=== PATIENT | female | born 1990 ===

== ENCOUNTER 2025-08-27 19:01 | Emergency (ER) | payer OTHER, SELFPAY ==
--- NOTE | 2025-08-27 19:22 | DI.US.S_ITS ---
PROCEDURE: US PELVIC COMPLETE INDICATIONS: possible imbedded IUD TECHNIQUE: Real-time scanning was performed of the pelvic organs, with image documentation. Additional endovaginal scanning was necessary due to incomplete visualization of the adnexal and endometrial structures by transabdominal scanning. COMPARISON: None. FINDINGS: Uterus: Uterus is anteverted and normal in size at 8.3 x 3.9 x 5.5 cm. The myometrium is homogeneous. The endometrium measures 3.2 mm combined thickness. Intrauterine device appears in appropriate position. Ovaries: The right ovary measures 3.8 x 4.4 x 1.7 cm, with a calculated ovarian volume of 14.4 cc. The left ovary measures 3.0 x 3.2 x 2.1 cm, with a calculated ovarian volume of 10.5 cc. Complex right ovarian cyst measuring 1.7 x 1.1 x 1.5 cm. Simple left ovarian cyst measuring 1.6 x 1.3 x 2.3 cm. Less than 12 follicles can be seen in each ovary. No adnexal masses are seen. Other: No pathologic free abdominal or pelvic fluid. IMPRESSION: Intrauterine device appears in appropriate position. Complex right ovarian cyst measuring 1.7 cm, may represent a hemorrhagic cyst versus endometrioma. Recommend follow-up ultrasound in 6-12 weeks to assess for resolution. We strive to produce accurate, complete, and clear reports of imaging services. To assist us in improving patient care, this report was composed using standard report templates and voice recognition software. Therefore, it may contain abnormal punctuation, insertions and/or omissions. Occasional wrong-word or sound-alike substitutions may occur. Though we review the report and make efforts to correct it, we do recommend that the report be read carefully in proper context to recognize any text inaccuracies. Dictated by: Thompson Trevino M.D. on 08/27/2025 at 20:03 Approved by: Thompson Trevino M.D. on 08/27/2025 at 20:05
--- NOTE | 2025-08-27 19:28 | PC.NURSE ---
called for triage, not in lobby
[2025-08-27 19:34] VITALS: BP 142/91; PULSE 111; RESP 18; TEMP 37.2; O2SAT 99; BMI 23.5
--- NOTE | 2025-08-27 19:47 | PC.NURSE ---
Pt found walking back into ER. Pt taken to US after triage completed.
--- NOTE | 2025-08-27 20:43 | ED_ITS ---
HPI - General Adult General Chief complaint: Urogenital-Female Stated complaint: Thinks IUD is embedded Time Seen by Provider: 08/27/25 19:05 Source: patient Mode of arrival: Ambulatory History of Present Illness HPI narrative: 34-year-old woman who presents with pelvic pain and cramping for the last week and is concerned that her IUD is poorly positioned and causing symptoms. Because of her IUD she has not been having periods. She saw a primary physician about a week ago with Pap smear and blood work done. There was a discussion of sexually transmitted infections with blood work done. She has not yet had any results back. She thinks that there was testing for STIs but she is not completely sure. She notes she had a recent episode of unprotected intercourse and would like to be empirically treated for both gonorrhea and chlamydia. She also would like her IUD out. Currently she has asked to other physicians to take it out and they declined. She understands that she will not have protection once removed but is very clear that she would like it out. Related Data Previous Rx's ?Medication ?Instructions ?Recorded doxycycline hyclate 100 mg capsule 100 mg PO BID #14 c aps 08/27/25 Allergies Allergy/AdvReac Type Severity Reaction Status Date / Time No Known Allergies Allergy Verified 08/27/25 19:39 Review of Systems Review of Systems Narrative: Pertinent positive and negative findings as per HPI Patient History Social History Smoking Status: Current every day smoker Smoking Status: Current every day smoker tobacco type: cigarettes Exam Initial Vital Signs Initial Vital Signs: Vital Signs Temperature 99.0 F 08/27/25 19:34 Pulse Rate 111 H 08/27/25 19:34 Respiratory Rate 18 08/27/25 19:34 Blood Pressure 142/91 H 08/27/25 19:34 Pulse Oximetry 99 08/27/25 19:34 Oxygen Delivery Method Room Air 08/27/25 19:34 General: Alert appropriate in no acute distress Respiratory: Able to speak in full sentences, no obvious respiratory distress Skin: No obvious rashes, warm and dry Neurologic: Grossly intact no obvious asymmetries or abnormalities Psych: appropriate insight and affect, cooperative : Healthy appearing external genitalia, no vaginal discharge, irregular odor, mucosal lesions. IUD strings are noted at the cervical os and are grasped with ring forceps and the IUD is easily removed. Course Orders Ordered: ED Orders 08/27/25 19:22 US pelvic complete Stat 08/27/25 22:21 Chlamydia Gonorrhea PCR -URINE Stat Discontinued Medications Ceftriaxone Sodium (Ceftriaxone 1,000 Mg Vial) 500 mg IM NOW ONE Stop: 08/27/25 22:22 Last Admin: 08/27/25 22:53 Dose: 500 mg Doxycycline Hyclate (Doxycycline Hyclate 100 Mg Tablet) 100 mg PO NOW ONE Stop: 08/27/25 22:22 Last Admin: 08/27/25 22:53 Dose: 100 mg Lidocaine HCl (Lidocaine 1% (Pf) 5 Ml) 2.1 ml INJ NOW ONE Stop: 08/27/25 22:22 Last Admin: 08/27/25 22:53 Dose: 2.1 ml Vital Signs Vital signs: Vital Signs - 8 hr 08/27/25 19:34 08/27/25 20:54 Temperature 99.0 F 98.5 F Pulse Rate 111 H 87 Respiratory Rate 18 16 Blood Pressure 142/91 H 121/66 Pulse Oximetry 99 97 Oxygen Delivery Method Room Air Room Air Medical Decision Making Lab Data Labs: Urine Dip Bedside Urine Glucose Negative Bedside Urine Bilirubin - Negative Bedside Urine Ketone - Negative Urine Specific [place] 1.010 Bedside Urine Occult Blood - Negative Bedside Urine pH 8.5 Bedside Urine Protein - Negative Bedside Urine Urobilinogen - Negative Bedside Urine Nitrite - Negative Bedside Urine Leukocytes - Negative Esterase Point of care testing: Urine Dip Bedside Urine Glucose Negative Bedside Urine Bilirubin - Negative Bedside Urine Ketone - Negative Urine Specific [place] 1.010 Bedside Urine Occult Blood - Negative Bedside Urine pH 8.5 Bedside Urine Protein - Negative Bedside Urine Urobilinogen - Negative Bedside Urine Nitrite - Negative Bedside Urine Leukocytes - Negative Esterase Imaging Data Pelvic ultrasound: Radiologist's Impression: PROCEDURE: US PELVIC COMPLETE INDICATIONS: possible imbedded IUD TECHNIQUE: Real-time scanning was performed of the pelvic organs, with image documentation. Additional endovaginal scanning was necessary due to incomplete visualization of the adnexal and endometrial structures by transabdominal scanning. COMPARISON: None. FINDINGS: Uterus: Uterus is anteverted and normal in size at 8.3 x 3.9 x 5.5 cm. The myometrium is homogeneous. The endometrium measures 3.2 mm combined thickness. Intrauterine device appears in appropriate position. Ovaries: The right ovary measures 3.8 x 4.4 x 1.7 cm, with a calculated ovarian volume of 14.4 cc. The left ovary measures 3.0 x 3.2 x 2.1 cm, with a calculated ovarian volume of 10.5 cc. Complex right ovarian cyst measuring 1.7 x 1.1 x 1.5 cm. Simple left ovarian cyst measuring 1.6 x 1.3 x 2.3 cm. Less than 12 follicles can be seen in each ovary. No adnexal masses are seen. Other: No pathologic free abdominal or pelvic fluid. IMPRESSION: Intrauterine device appears in appropriate position. Complex right ovarian cyst measuring 1.7 cm, may represent a hemorrhagic cyst versus endometrioma. Recommend follow-up ultrasound in 6-12 weeks to assess for resolution. We strive to produce accurate, complete, and clear reports of imaging services. To assist us in improving patient care, this report was composed using standard report templates and voice recognition software. Therefore, it may contain abnormal punctuation, insertions and/or omissions. Occasional wrong-word or sound-alike substitutions may occur. Though we review the report and make efforts to correct it, we do recommend that the report be read carefully in proper context to recognize any text inaccuracies. Dictated by: Thompson Trevino M.D. on 08/27/2025 at 20:03 MDM Narrative Medical decision making narrative: CC: Pelvic cramping Complicating co-morbidities: IUD that she is wanted to have removed, concern for sexually transmitted infection, possible urinary tract infection Data collected from: patient Differential considered: Displaced IUD, cramping secondary to IUD, PID, urinary tract infection, sexually transmitted infection Exam documented above, pertinent findings include: Exam is relatively benign. She does not have significant cervical motion tenderness. No significant vaginal discharge Lab Test results independently reviewed as above. Pertinent findings: Point of care urine does not suggest bladder infection Gonorrhea and chlamydia urine test PCR are pending Imaging studies independently reviewed: Ultrasound shows appropriately placed IUD with no other concern Procedure/ Treatments: at patient request IUD is removed. Patient is placed in a dorsal lithotomy position, speculum was gently inserted, cervical os is visualized with IUD strings notable. Ring forceps were used and IUD strings are pulled with IUD removal. There were no complications and patient tolerated procedure well With shared decision-making we opted to empirically treat her for both gonorrhea and chlamydia Re-evaluations: Patient is feeling significantly improved in pelvic cramping is almost resolved Discussion: 34-year-old woman empirically treated for gonorrhea and chlamydia with 500 mg of IM ceftriaxone and 7 days of doxycycline. At her request IUD is removed. Preceding ultrasound had demonstrated appropriate placement. We did review the fact that she will not be protected from . She will follow up with her primary care physician. I do not suspect pelvic inflammatory disease at this time. Questions are answered there was no indication for further imaging or hospitalization and she is safely discharge Discharge Plan Departure Patient Disposition: Home Clinical Impression: Urinary tract infection Qualifiers: Urinary tract infection type: acute cystitis Hematuria presence: without hematuria Qualified Code(s): N30.00 - Acute cystitis without hematuria Pain due to intrauterine contraceptive device (IUD) Qualifiers: Encounter type: initial encounter Qualified Code(s): T83.84XA - Pain due to genitourinary prosthetic devices, implants and grafts, initial encounter Instructions: DI for Urinary Tract Infection (UTI) Activity Restrictions/Additional Instructions: Thank you for coming into Ultrasound was done and showed that your IUD was appropriately positioned. I very much understand that you still feels that it is causing you pain. It was easily removed in the emergency department. You no longer have any protection against . Your urine did not suggest bladder infection of but it did look somewhat cloudy. I did tested for gonorrhea and chlamydia and if those returned positive you will get a phone call. I also treated you for both of those. The shot was for the gonorrhea and the 7 days of doxycycline is for the chlamydia. I would strongly recommend condoms with all future sexual encounters both for sexually transmitted infection prevention and protection but also to make sure you do not have an unintended If you find that you are getting worse or develop any new symptoms, please feel free to return to the emergency department for further evaluation. Prescriptions: New doxycycline hyclate 100 mg capsule 100 mg PO BID Qty: 14 0RF Referrals: Nico Genao ARNP [Primary Care Provider, Naturopathy] Stand Alone Forms: Patient Portal/API
[2025-08-27 20:54] VITALS: BP 121/66; PULSE 87; RESP 16; TEMP 36.9; O2SAT 97
[2025-08-27] MEDS: LIDOCAINE 1% (PF) 5 ML 2.1 ML INJ (22:53)
[2025-08-27] MEDS: DOXYCYCLINE HYCLATE 100 MG TABLET PO (22:53)
[2025-08-28 01:07] LABS: Urine N gonorrhoeae NOT DETECTED
[2025-08-28 01:23] LABS: Urine Chlamydia NOT DETECTED
== END 2025-08-27 23:49 | disposition home or self-care (01) ==
PROVIDERS: Emergency Provider Emergency Medicine; PCP Registered Nurse
DX: N30.00 Acute cystitis without hematuria (principal); T83.84XA Pain due to genitourinary prosthetic devices, implants and grafts, initial encounter
CPT/HCPCS: 76830; 76856; 81003; 87491; 87591; 96372; 99283; J0696

== ENCOUNTER 2025-09-02 20:37 | Emergency (ER) | payer OTHER, SELFPAY ==
[2025-09-02 20:44] VITALS: BP 111/65; PULSE 90; RESP 16; TEMP 36.6; O2SAT 98; BMI 23.3
[2025-09-02 22:42] LABS: Add Manual Diff / Slide Review NO; Hematocrit 37.3 % (36-46); Hemoglobin 12.6 g/dL (12.0-16.0); Lymphocytes Absolute Auto 1800 /uL (1100-4500); Mean Corpuscular HGB Conc 33.8 % (30-36); Mean Corpuscular Hemoglobin 31.4 PG (26-34); Mean Corpuscular Volume 93.0 fL (80-100); Platelet Count 276 X10^3/uL (150-400)
[2025-09-02 22:43] LABS: Appearance Urine UA CLEAR; Bilirubin Urine UA NEGATIVE (NEGATIVE); Color Urine UA YELLOW; Glucose Urine UA NEGATIVE (Negative); Ketones Urine UA NEGATIVE (NEGATIVE); Leukocyte Esterase Urine UA 1+ (NEGATIVE); Nitrite Urine UA NEGATIVE (Negative); Occult Blood Urine UA NEGATIVE (Negative); Protein Urine UA NEGATIVE (Negative); Specific Gravity Urine UA 1.025 (1.000-1.035); Urobilinogen Urine UA 1.0 E.U./dL (0.2)
[2025-09-02 22:50] LABS: UR Morphine/Opiate cutoff 300 Negative (Negative); Ur Specific Gravity Normal (Normal); Urine MDMA Negative (Negative); Urine Methamphetamines Negative (Negative); Urine Tetrahydrocannabinol Negative (Negative); Urine Tricyclic Antidepressant Negative (Negative)
[2025-09-02 22:53] LABS: Acetaminophen < 10 ug/mL (10-30); Alanine Aminotransferase 17 IU/L (<35); Albumin 3.8 g/dL (3.5-5.0); Albumin Globulin Ratio 1.3 (1.0-2.8); Alkaline Phosphatase 40 U/L (38-126); Blood Urea Nitrogen 11 mg/dL (7-17); Calcium 8.2 mg/dL (8.4-10.2); Carbon Dioxide 23 mmol/L (22-32); Chloride 107 mmol/L (98-107); Estimated Glomerular Filt Rate > 60 mL/min (>60); Ethanol (ETOH) < 10 mg/dL (<10); Globulin 2.9 g/dL (1.7-4.1); Glucose 121 mg/dL (70-99); HEMOLYSIS 32 (0-50); Potassium 3.8 mmol/L (3.4-5.1); Salicylate < 1.0 mg/dL (<20); Sodium 136 mmol/L (137-145); Total Protein 6.7 g/dL (6.3-8.2)
[2025-09-02 22:53] LABS: pH Urine UA 6.0 (4.5-8.0)
[2025-09-02 22:56] LABS: Culture Indicated Urine Cult Not Indicated
--- NOTE | 2025-09-02 23:03 | PC.NURSE ---
Patient c/o headache for years and states ordered MRI 2 weeks ago that she has not been able to scehdule, pt requesting pain medication and MRI. aware
[2025-09-02 23:16] LABS: Lithium < 0.2 mmol/L (0.6-1.2)
[2025-09-02] MEDS: IBUPROFEN 400 MG TABLET 800 MG PO (23:17)
[2025-09-02] MEDS: ACETAMINOPHEN 325 MG TABLET 975 MG PO (23:18)
[2025-09-02 23:41] LABS: TSH w/ Reflex to FT4 1.22 uIU/mL (0.47-4.68)
[2025-09-03 00:27] LABS: COVID19 -Nasal RAPID Negative (Negative)
--- NOTE | 2025-09-03 02:10 | ED.MEDCLEAR ---
HPI - Medical Clearance General Chief complaint: Medical Clearance Stated complaint: detox Time Seen by Provider: 09/02/25 22:18 Source: patient Mode of arrival: Ambulatory History of Present Illness HPI Narrative: 34-year-old female reports history of bipolar disorder, previously on lithium prescribed about 1 year ago, had stopped the lithium about 1 month ago, here for some kind of ?detox? evaluation but does not endorse use of any substance from which she is detoxing. Denies alcohol use, opiate use, benzodiazepine use. No shakiness or seizure activity. No abdominal pain or cramping or diarrhea. Denies thoughts of hurting herself or others. Does not feel out of control with her bipolar disorder. Related Information Previous Rx's ?Medication ?Instructions ?Recorded doxycycline hyclate 100 mg capsule 100 mg PO BID #14 caps 08/27/25 Allergies Allergy/AdvReac Type Severity Reaction Status Date / Time No Known Allergies Allergy Verified 09/02/25 20:45 Patient History tobacco type: cigarettes Exam Narrative Exam Narrative: GENERAL: Well-developed patient, in mild distress. HEAD: Atraumatic. Normocephalic. EYES: Pupils equal round and reactive. Extraocular motions intact. No scleral icterus. No injection or drainage. ENT: Nose without bleeding, purulent drainage. Throat without erythema, tonsillar hypertrophy or exudate. Airway patent. NECK: Trachea midline. Non tender CARDIOVASCULAR: Regular rate and rhythm without murmurs, gallops, or rubs. RESPIRATORY: Clear to auscultation. Breath sounds equal bilaterally. No wheezes, rales, or rhonchi. GASTROINTESTINAL: Abdomen soft, non-tender, nondistended. EXTREMITIES: No edema or joint tenderness. BACK: Nontender without deformity or crepitance. No flank tenderness. NEURO: AOx3. Motor functions grossly nonfocal. Psych: Denies thoughts of hurting self or others, no obvious flight of ideas, cooperative SKIN: No rash or erythema of visible areas Initial Vital Signs Initial Vital Signs: Vital Signs Temperature 98 F 09/02/25 20:44 Pulse Rate 90 09/02/25 20:44 Respiratory Rate 16 09/02/25 20:44 Blood Pressure 111/65 09/02/25 20:44 Pulse Oximetry 98 09/02/25 20:44 Oxygen Delivery Method Room Air 09/02/25 20:44 MDM - Medical Clearance Lab Data Attestation: I reviewed the patient's lab results. Lab results narrative: White blood cell count 7700, hemoglobin 12.6, platelets adequate. Glucose 121. Normal renal function, serum CO2, potassium. Sodium 136 slight low. Liver functions normal. Urine test negative. Urine dip negative. TSH normal. [place] not measurable. Salicylate and acetaminophen levels negative. COVID negative. 09/02/25 22:30 09/02/25 22:30 Labs: Lab Results 09/02/25 09/02/25 09/02/25 Range/Units 22:24 22:24 22:30 WBC 7.7 (4.5-11.0) X10^3/uL RBC 4.01 (4.0-5.2) X10^6/uL Hgb 12.6 (12.0-16.0) g/dL Hct 37.3 (36-46) % MCV 93.0 (80-100) fL MCH 31.4 (26-34) PG MCHC 33.8 (30-36) % RDW 13.6 (11.6-14.8) % Plt Count 276 (150-400) X10^3/uL Neut % (Auto) 60.1 (50-75) % Lymph % (Auto) 23.4 L (25-40) % [place] % (Auto) 8.2 (3-14) % Eos % (Auto) 7.2 H (2-4) % Baso % (Auto) 1.1 (0-2) % Neut # (Auto) 4600 (0675-1711) /uL Lymph # (Auto) 1800 (3578-0684) /uL [place] # (Auto) 600 (0-900) /uL Eos # (Auto) 600 H (0-450) /uL Baso # (Auto) 100 (0-100) /uL Sodium 136 L (137-145) mmol/L Potassium 3.8 (3.4-5.1) mmol/L Chloride 107 (98-107) mmol/L Carbon Dioxide 23 (22-32) mmol/L BUN 11 (7-17) mg/dL Creatinine 0.54 (0.52-1.04) mg/dL Estimated GFR > 60 (>60) mL/min BUN/Creatinine Ratio 20.4 (6-22) Glucose 121 H (70-99) mg/dL Calcium 8.2 L (8.4-10.2) mg/dL Total Bilirubin 0.2 (0.2-1.3) mg/dL AST 23 (14-36) IU/L ALT 17 (<35) IU/L Alkaline Phosphatase 40 (38-126) U/L Total Protein 6.7 (6.3-8.2) g/dL Albumin 3.8 (3.5-5.0) g/dL Globulin 2.9 (1.7-4.1) g/dL Albumin/Globulin Ratio 1.3 (1.0-2.8) TSH 1.22 (0.47-4.68) uIU/mL Urine Color Yellow Urine Appearance Clear Urine pH 6.0 Normal (4.5-8.0) Ur Specific [place] 1.025 (1.000-1.035) Urine Protein Negative (Negative) Urine Glucose (UA) Negative (Negative) g/dL Urine Ketones Negative (NEGATIVE) Urine Occult Blood Negative (Negative) Urine Nitrate Negative (Negative) Urine Bilirubin Negative (NEGATIVE) Urine Urobilinogen 1.0 (0.2) E.U./dL Ur Leukocyte Esterase 1+ H (NEGATIVE) Urine RBC 0-1/hpf (0-5/HPF) Urine WBC 0-1/hpf (0-5/HPF) Ur Squamous Epith Cells 5-10 /hpf H (0-5/HPF) Urine Bacteria Few (2-10) H (None) Ur Culture Indicated? Cult not indicated Vol Urine Centrifuged 10ml (spun) Urine Test Negative (Negative) Salicylates < 1.0 (<20) mg/dL U Opiates 300ng/mL cut Negative (Negative) Ur Oxycodone Screen Negative (Negative) Urine Methadone Screen Negative (Negative) Acetaminophen < 10 (10-30) ug/mL Ur Barbiturates Screen Negative (Negative) U Tricyclic Antidepress Negative (Negative) Ur Phencyclidine Scrn Negative (Negative) Ur Amphetamines Screen Negative (Negative) U Methamphetamines Scrn Negative (Negative) Ur MDMA Scrn (Ecstasy) Negative (Negative) U Benzodiazepines Scrn Negative (Negative) [place] < 0.2 L (0.6-1.2) mmol/L Urine Cocaine Screen Negative (Negative) U Marijuana (THC) Screen Negative (Negative) Urine Specific [place] Normal (Normal) Ethyl Alcohol < 10 (<10) mg/dL Ur Creatinine Normal (Normal) SARS-CoV-2 (PCR) (Negative) 09/03/25 Range/Units 00:04 WBC (4.5-11.0) X10^3/uL RBC (4.0-5.2) X10^6/uL Hgb (12.0-16.0) g/dL Hct (36-46) % MCV (80-100) fL MCH (26-34) PG MCHC (30-36) % RDW (11.6-14.8) % Plt Count (150-400) X10^3/uL Neut % (Auto) (50-75) % Lymph % (Auto) (25-40) % [place] % (Auto) (3-14) % Eos % (Auto) (2-4) % Baso % (Auto) (0-2) % Neut # (Auto) (5821-0503) /uL Lymph # (Auto) (3519-6713) /uL [place] # (Auto) (0-900) /uL Eos # (Auto) (0-450) /uL Baso # (Auto) (0-100) /uL Sodium (137-145) mmol/L Potassium (3.4-5.1) mmol/L Chloride (98-107) mmol/L Carbon Dioxide (22-32) mmol/L BUN (7-17) mg/dL Creatinine (0.52-1.04) mg/dL Estimated GFR (>60) mL/min BUN/Creatinine Ratio (6-22) Glucose (70-99) mg/dL Calcium (8.4-10.2) mg/dL Total Bilirubin (0.2-1.3) mg/dL AST (14-36) IU/L ALT (<35) IU/L Alkaline Phosphatase (38-126) U/L Total Protein (6.3-8.2) g/dL Albumin (3.5-5.0) g/dL Globulin (1.7-4.1) g/dL Albumin/Globulin Ratio (1.0-2.8) TSH (0.47-4.68) uIU/mL Urine Color Urine Appearance Urine pH (4.5-8.0) Ur Specific [place] (1.000-1.035) Urine Protein (Negative) Urine Glucose (UA) (Negative) g/dL Urine Ketones (NEGATIVE) Urine Occult Blood (Negative) Urine Nitrate (Negative) Urine Bilirubin (NEGATIVE) Urine Urobilinogen (0.2) E.U./dL Ur Leukocyte Esterase (NEGATIVE) Urine RBC (0-5/HPF) Urine WBC (0-5/HPF) Ur Squamous Epith Cells (0-5/HPF) Urine Bacteria (None) Ur Culture Indicated? Vol Urine Centrifuged Urine Test (Negative) Salicylates (<20) mg/dL U Opiates 300ng/mL cut (Negative) Ur Oxycodone Screen (Negative) Urine Methadone Screen (Negative) Acetaminophen (10-30) ug/mL Ur Barbiturates Screen (Negative) U Tricyclic Antidepress (Negative) Ur Phencyclidine Scrn (Negative) Ur Amphetamines Screen (Negative) U Methamphetamines Scrn (Negative) Ur MDMA Scrn (Ecstasy) (Negative) U Benzodiazepines Scrn (Negative) [place] (0.6-1.2) mmol/L Urine Cocaine Screen (Negative) U Marijuana (THC) Screen (Negative) Urine Specific [place] (Normal) Ethyl Alcohol (<10) mg/dL Ur Creatinine (Normal) SARS-CoV-2 (PCR) Negative (Negative) MDM Narrative Medical decision making narrative: 34-year-old female with history of bipolar disorder here for some kind of detox request, has been off lithium for the last 1 month, denies use of opiates and benzodiazepines and marijuana or other drugs. No obvious withdrawal symptoms. Denies thoughts of hurting herself or others. Screening labs sent. Lab data: White blood cell count 7700, hemoglobin 12.6, platelets adequate. Glucose 121. Normal renal function, serum CO2, potassium. Sodium 136 slight low. Liver functions normal. Urine test negative. Urine dip negative. TSH normal. [place] not measurable. Salicylate and acetaminophen levels negative. COVID negative. Patient we would like to be discharged home. Discharged home with family, they will pursue outpatient ?detox? services as needed. Follow up with mental health providers advised. Return precautions discussed. Discharge Plan Departure Patient Disposition: Home Clinical Impression: Encounter for medical screening examination, History of bipolar disorder Activity Restrictions/Additional Instructions: Request for medical screening for detox, however unclear if your actually detoxing for any specific substance. Denied use of alcohol, opiates, benzodiazepines, marijuana. History of bipolar disorder diagnosis, previously on lithium but discontinued 1 month ago, which should not cause any withdrawal or detox symptoms. Medically cleared for outpatient detox services if you should choose to pursue those. Follow up with your mental health professionals as planned. Return to this/nearest emergency department for any change worsening symptoms or any concerns prior. Prescriptions: No Action doxycycline hyclate 100 mg capsule 100 mg PO BID Qty: 14 0RF Referrals: Nico Genao ARNP [Primary Care Provider, Naturopathy] Stand Alone Forms: Patient Portal/API
[2025-09-03 02:33] VITALS: BP 109/54; PULSE 84; RESP 18; O2SAT 97
== END 2025-09-03 03:00 | disposition home or self-care (01) ==
PROVIDERS: Emergency Provider Emergency Medicine; PCP Registered Nurse
DX: F19.10 Other psychoactive substance abuse, uncomplicated (principal); F31.9 Bipolar disorder, unspecified
CPT/HCPCS: 80053; 80178; 80305; 80320; 80329; 81003; 81015; 81025; 84443; 85025; 87635; 99283; G0480

== ENCOUNTER 2025-11-03 10:50 | Emergency (ER) | payer OTHER, SELFPAY ==
--- OUTSIDE RECORDS SUMMARY | 2025-11-03 10:55 | XMS_ITS | Encounter Summary ---
Author Organization [facility] Address [address] [place] [address] Phone [phone] Care Team Providers Care Legal Mediator Name Role Phone Nico Genao Primary Care Provider [phone] Encounter Details Date Type Department Care Team ([facility] st Contact Info) Description 08/30/2025 Results Follow-Up [facility] [address] [place] [phone] Betsy Marquis ARNP [address] [place] [phone] Chlamydia and Gonorrhea, PCR, Random Urine Social History Tobacco Use Types Packs/Day Years Used Date Smoking Tobacco: Every Day Cigarettes Alcohol Use Standard Drinks/Week Comments Not Currently 0 (1 standard drink = 0.6 oz pur e alcohol) PHQ-2 Answer Date Recorded Patient Health Questionnaire-2 Score 4 03/17/2025 Comments Unknown Sex and Gender Information Value Date Recorded Sex Assigned at Not on file Legal Sex Female 6:55 AM PDT Gender Identity Not on file Sexual Orientation Not on file documented as of this encounter Miscellaneous Notes * Telephone Encounter - JESSY Izaguirre - 08/30/2025 12:11 PM PDT LVM to CB Re: lab results. documented in this encounter Plan of Treatment Not on file documented as of this encounter Visit Diagnoses Not on filedocumented in this encounter Care Teams Legal Mediator Relationship Specialty Start Date End Date Nico Genao ARNP [address] [place] [phone] PCP - General Family Medicine 03/17/25 documented as of this encounter
[2025-11-03 10:58] VITALS: BP 118/61; PULSE 76; RESP 13; TEMP 36.5; O2SAT 100; BMI 24.2
== END 2025-11-03 15:18 | disposition left against medical advice (07) ==
PROVIDERS: Emergency Provider Emergency Medicine; PCP Registered Nurse
DX: Z53.21 Procedure and treatment not carried out due to patient leaving prior to being seen by health care provider (principal)
CPT/HCPCS: 99281